=== PATIENT | female | born 1965 | race Two or more races ===

== ENCOUNTER 2018-10-06 12:46 | Emergency (ER) | payer OTHER ==
[~2018-10-06] VITALS: Ht 152.4 cm; Wt 123.8 kg
[2018-10-06] MEDS ORDERED: KETOROLAC TROMETH 60MG/2ML VIAL IM ONE (14:00)
[2018-10-06 15:12] VITALS: BP 176/102
== END 2018-10-06 15:09 | disposition home or self-care (01) ==
LOC: ER 12:49
DX: S29.011A Strain of muscle and tendon of front wall of thorax, initial encounter (principal); I10 Essential (primary) hypertension; W01.0XXA Fall on same level from slipping, tripping and stumbling without subsequent striking against object, initial encounter; Y93.01 Activity, walking, marching and hiking; Y92.098 Other place in other non-institutional residence as the place of occurrence of the external cause; Y99.8 Other external cause status
CPT/HCPCS: 71101; 96372; 99283; J1885